=== PATIENT | female | born 1950 | race Caucasian/White ===

== ENCOUNTER 2020-09-21 09:48 | Outpatient (CLI) | payer MEDICARE, MEDICAID, SELFPAY ==
--- NOTE | 2020-09-21 10:42 | ECG_ITS ---
Measurements Intervals [place] Rate: 66 P: 2 NM: 157 QRS: 5 QRSD: 99 T: 15 QT: 394 QTc: 415 Interpretive Statements SINUS RHYTHM BORDERLINE R WAVE PROGRESSION, ANTERIOR LEADS BASELINE ARTIFACT- I, II, III, AVR, AVL, AVF BORDERLINE ECG Electronically Signed On 09-21-2020 11:37:41 [employer] by Luis Zuluaga D.O.
[2020-09-21 11:28] LABS: Basophils Absolute Auto 0.1 K/mm3 (0.0-0.1); Basophils Percent Auto 0.9 % (0.2-1.2); Eosinophils Absolute Auto 0.3 K/mm3 (0-0.3); Eosinophils Percent Auto 5.3 % (0-4.4); Hematocrit 39.8 % (37.0-47.0); Immature Granulocyte Absolute 0.02 K/mm3 (0.00-0.031); Immature Granulocyte Percent A 0.3 % (0-0.5); Lymphocytes Absolute Auto 2.17 K/mm3 (0.9-3.2); Lymphocytes Percent Auto 36.9 % (18.3-44.2); Mean Corpuscular HGB Conc 32.7 g/dl (32-36); Mean Corpuscular Hemoglobin 32.1 pg (26-34); Mean Corpuscular Volume 98.3 fl (80-100); Mean Platelet Volume 9.5 fl (7.4-10.4); Monocytes Absolute Auto 0.5 K/mm3 (0.1-0.6); Monocytes Percent Auto 7.7 % (2.6-8.5); Neutrophils Absolute Auto 2.9 K/mm3 (1.3-6.7); Neutrophils Percent Auto 48.9 % (45.5-73.1); Platelet Count Result 216 k/mm3 (150-375); Red Blood Count 4.05 M/mm3 (4.2-5.4); Red Cell Distribution Width 14.3 % (11.5-14.5); White Blood Count 5.9 K/mm3 (4.5-10.0)
[2020-09-21 11:31] LABS: Add Urine Microscopic? YES; Appearance Urine Cloudy (Clear); Bilirubin Urine Negative (Negative); Blood Urine Negative (Negative); Color Urine Yellow (Yellow); Glucose Urine UA Negative (Negative); Ketones Urine Negative (Negative); Leukocyte Esterase Ur Negative LEU/UL (Negative); Mucus Urine Rare /lpf; Nitrate Urine Negative (Negative); Protein Urine 1+ mg/dL (Negative); RBC Urine 0-2 /hpf (0-2); Specific Grav Ur 1.028 (1.001-1.035); Squamous Epithelial Cell Urine Rare /hpf (Few); Urobilinogen Urine Negative mg/dL (<2.0); WBC Urine 0-3 /hpf
[2020-09-21 11:39] LABS: Anion Gap 5 mmol/L (8-16); Blood Urea Nitrogen 23 mg/dL (7-17); Calcium 9.6 mg/dL (8.4-10.2); Carbon Dioxide 30 mmol/L (22-30); Chloride 104 mmol/L (98-107); Estimated Glomerular Filt Rate > 60; Glucose 133 mg/dL (65-105); Potassium 3.6 mmol/L (3.4-5.0); Sodium 139 mmol/L (137-145)
[2020-09-21 11:40] LABS: INR 0.9; Prothrombin Time 12.4 Seconds (11.1-14.7)
[2020-09-21 11:41] LABS: Partial Thromboplastin Time 29.1 SECONDS (22.3-36.8)
[2020-09-21 11:57] LABS: Urine Cotinine NEGATIVE
[2020-09-21 12:17] LABS: Hemoglobin A1C 5.9 % (<5.7)
== END 2020-09-21 09:49 | disposition home or self-care (01) ==
PROVIDERS: PCP Emergency Medicine; Visit Provider Orthopaedic Surgery
DX: Z01.818 Encounter for other preprocedural examination (principal); M17.12 Unilateral primary osteoarthritis, left knee
CPT/HCPCS: 80048; 80307; 81001; 82040; 83036; 85025; 85610; 85730; 86850; 86900; 86901; 87081; 93005

== ENCOUNTER 2020-09-28 00:20 | Day surgery (SDC) | payer MEDICARE, MEDICAID, SELFPAY ==
[2020-09-21 10:20] VITALS: BMI 34.2
[2020-09-21 10:40] VITALS: BP 142/55; PULSE 69; RESP 16; TEMP 37.3; O2SAT 99
--- NOTE | 2020-09-27 09:49 | WPDANESEPPF ---
Anes - Initial Pre Proc Eval Procedure: Operation Date: 09/28/20 07:30 Proposed Procedures p Left Total Knee Arthroplasty - Khai Lyman MD Date/Time: 09/27/20 09:49 Surgeon: Khai Lyman MD Pre Op Diagnosis: Left Knee DJD Patient Data Age: 70 Gender: F Height: 1.52 m Weight: 79.4 kg Last Vital Signs Temp 37.3 C 09/21/20 10:40 Pulse 69 09/21/20 10:40 Resp 16 09/21/20 10:40 BP 142/55 H 09/21/20 10:40 Pulse Ox 99 09/21/20 10:40 Allergies Allergy/AdvReac Type Severity Reaction Status Date / Time Sulfa (Sulfonamide Allergy Intermediate Hives Verified 09/28/20 06:37 Antibiotics) Home Medications Medication Instructions Recorded Confirmed Type aspirin 81 mg tablet,delayed 81 mg PO DAILY #90 tablet 06/21/20 09/28/20 Rx release lisinopril 5 mg tablet 5 mg PO DAILY #90 tablet 06/21/20 09/28/20 Rx metformin 1,000 mg tablet 1,000 mg PO BID #180 tablet 06/21/20 09/28/20 Rx calcium carbonate 600 mg (1,500 1 cap PO DAILY 07/29/20 09/28/20 History mg)-vitamin D3 500 unit capsule multivitamin 1 tablet PO DAILY 07/29/20 09/28/20 History chlorhexidine gluconate 4 % 1 applic TOPICAL ONCE #237 ml 09/05/20 09/28/20 Rx topical liquid atorvastatin 40 mg PO HS 09/21/20 09/28/20 History cyanocobalamin (vitamin B-12) 1,000 mcg PO DAILY 09/21/20 09/28/20 History meloxicam 15 mg PO PRN PRN 09/21/20 09/28/20 History montelukast 10 mg PO PRN PRN 09/21/20 09/28/20 History Patient hx anesthesia problems: none Family hx anesthesia problems: none PMFSH Past Medical History Medical History (Updated 09/27/20 @ 09:50 by Jose Moran, ) Cataracts, both eyes Chicken pox Claustrophobia Diabetes type II History of sinus problem Hyperlipidemia Hypertension Wears glasses Surgical History Surgical History H/O cataract removal with insertion of prosthetic lens (~2013) History of section (~1984) History of section (~1986) History of partial knee replacement (~2018) History of tonsillectomy (~195) Family History Family History Father , 77 Heart problem Mother , 93. of natural causes No problems noted. Other Arthritis Diabetes mellitus Hypertension Social History Social History Social History: Patient drinks caffeine once weekly Smoking status: Never smoker Additional smoking assessment comments: DENIES ANY FORM OF TOBACCO USE Alcohol intake: never Substance use: never Substance use type: does not use Living arrangements: with family Gender identity (if verbalized by the patient): Female Spiritual care concerns: No Anes - Eval Final PreProcedure Day of Procedure 09/27/20 09:49 Patient weight: obese Heart: regular rate and rhythm Lungs: clear to auscultation and normal air movement Airway: Mallampati scale class II Neurological: alert and oriented Last oral intake: >/= 8 hours ASA classification: III Emergent: no Anesthetic plan: proceed Anesthesia type and monitoring: general LMA and standard monitoring Informed Consent: The patient's anesthetic plan and its attendant risks and benefits were discussed with the patient/family/POA. Questions were solicited and answers provided to the satisfaction of the patient/family/POA.
[2020-09-28] VITALS (13 sets, daily range): BP systolic 107–163; BP diastolic 55–86; PULSE 70–84; RESP 8–18; TEMP 35.8–36.8; O2SAT 96–100
--- NOTE | ~2020-09-28 | XR_ITS ---
EXAMINATION: XR knee LT 2V EXAM DATE: 09/28/2020 10:47 INDICATION: Left knee arthroplasty. TECHNIQUE: Portable frontal, crosstable lateral projections left knee obtained immediately following arthroplasty. Procedure performed by Khai Lyman MD. FINDINGS: Patient is status post total knee arthroplasty. The orthopedic hardware is in expected po sition. There are regulo overlying the anterior aspect of the knee. There is small amount of subcu taneous gas, gas within the knee joint space. Overlying soft tissue swelling. Correlate with proced ure note. IMPRESSION: Status post total left knee arthroplasty. Reviewed, dictated and finalized at location A.
[2020-09-28] MEDS: ACETAMINOPHEN 500 MG TABLET 1000 MG PO (06:40)
[2020-09-28] MEDS: LACTATED RINGERS 1,000 ML 30 ML IV CONT ×2 (06:45→10:28)
--- NOTE | 2020-09-28 06:45 | WPDANESPNB ---
Anes - Peripheral Nerve Block Date/Time: 09/28/20 06:45 I have discussed with the patient/family/POA the placement of a peripheral nerve block for post-operative pain management, including associated risks, benefits, complications, and side effects. Alternative methods of post-operative analgesia were detailed. Questions were solicited and answers provided to the satisfaction of the patient/family/POA. Time-Out: A pre-procedural Time-Out was completed immediately before starting the procedure and confirmed: Patient Identification, Site, Procedure, Patient Position and the Availability of Requisite Equipment. Clinical Indications: Acute post-operative pain management requested by the operative surgeon. Nerve Block Insertion Note Anes-nerve block: adductor canal left Patient position: supine Skin prep: chlorhexidine Needle: 22 gauge, stimulating, insulated echogenic needle. Needle length: 80 mm Technique: ultrasound Injectate: bupivacaine 0.5% with epi 5 mcg/ml (30cc - no epi) Observations: tolerated well Complications: none Procedure start time:: 730 Procedure end time:: 733
[2020-09-28 06:56] LABS: Glucose Point of Care 122 (65-105)
[2020-09-28] MEDS: TRANEXAMIC ACID 1,000MG/ISO100 1,000 MG/100 ML BAG 200 MG IVPB (07:14)
--- NOTE | 2020-09-28 07:22 | WPDHPUPDATE1 ---
History and Physical Update Update Date/Time: 09/28/20 07:22 History and Physical has been reviewed, including an updated exam of the patient. There are NO changes in the patient's condition. Risks, benefits, and alternatives have been discussed and questions answered. Patient agrees to proceed with procedure.
[2020-09-28] MEDS: ceFAZolin 2 GM/D5W 50 ML 2 GM/50 ML BAG IVPB ×2 (07:40→17:01)
--- NOTE | 2020-09-28 11:00 | PM.PROC ---
Procedure Note - Detailed Date of procedure: 09/28/20 Pre-op diagnosis: Left Knee DJD Post-op diagnosis: same Procedure performed: L TKA Description of procedure: THE LEFT KNEE WAS PREPPED AND DRAPED IN THE STERILE FASHION. A MIDLINE SKIN INCISION WAS MADE. A MEDIAL PARAPATELLAR ARTHROTOMY WAS MADE. THE PATELLA WAS EVERTED. THERE WAS TRICOMPARTMENT DJD. THERE WAS MINIMAL PATELLA DJD. AN INTRAMEDULLARY DENICE WAS PLACED IN THE FEMUR. A DISTAL FEMORAL CUT WAS MADE IN 5 DEGREES OF VALGUS REMOVING APPROXIMATELY 9 MM OF BONE FROM THE DISTAL FEMUR. THE FEMUR WAS SIZED TO 57.5. A 57.5 FEMORAL CUTTING BLOCK WAS PLACED IN 3 DEGREES OF EXTERNAL ROTATION AND IN ALIGNMENT WITH JOSSIE'S LINE AND THE TRANSEPICONDYLAR AXIS. ANTERIOR POSTERIOR AND CHAMFER CUTS WERE MADE. THE CUTS WERE EXCELLENT. NEXT AN INTRAMEDULLARY CUTTING GUIDE WAS PLACED IN THE TIBIA. A TRANS TIBIAL CUT WAS MADE ALONG THE LONG AXIS OF THE TIBIA. APPROXIMATELY 10 MM OF BONE WAS REMOVED FROM THE HIGH SIDE OF THE TIBIA. THE TIBIA WAS THEN PLANED TO A SMOOTH SURFACE. POSTERIOR FEMORAL OSTEOPHYTES WERE REMOVED FROM THE FEMORAL CONDYLES. A 67 TIBIAL TRIAL WAS PLACED IN ALIGNMENT WITH THE 1/3 MEDIAL ASPECT OF THE TIBIAL TUBERCLE. THEN A 70 FEMORAL TRIAL COMPONENT WAS PLACED. BOTH HAD EXCELLENT FITS. EVENTUALLY A 12m POLYETHYLENE TRIAL COMPONENT WAS PLACED. THE KNEE WAS TAKEN THROUGH A RANGE OF MOTION. THE KNEE CAME OUT TO FULL EXTENSION. THERE WAS NO ABNORMAL TILT TO THE PATELLA. THERE WAS GOOD A/P AND VARUS/VALGUS STABILITY. THERE WAS NO EXCESSIVE ROLL BACK WITH FLEXION. THE TRIAL COMPONENTS WERE REMOVED. THEN A 7O FEMORAL COMPONENT AND 67 TIBIAL COMPONENT WITH A 12 POLYETHYLENE COMPONENT WERE CEMENTED INTO PLACE. ONCE THE CEMENT WAS HARD THE KNEE WAS TAKEN THROUGH A ROM AGAIN AND FOUND TO BE STABLE WITH NO PATELLA TILT NO EXCESSIVE ROLL BACK WITH FLEXION AND GOOD STABILITY WITH COMPLETE AND FULL EXTENSION. THE KNEE WAS IRRIGATED WITH STERILE BETADINE AND WATER FOR ABOUT 3 MINUTES. THE BLEEDERS WERE CAUTERIZED. THE ARTHROTOMY WAS REPAIRED WITH NUMBER 1 VICRYL. THE SUB CUTANEOUS LAYER WITH 2-0 VICRYL AND THE SKIN WITH APRIL. THE WOUND WAS WASHED AND A STERILE DRESSING WAS APPLIED. PATIENT WAS EXTUBATED. Anesthesia: GETA Surgeon: Khai Lyman MD Estimated blood loss (mL): 100 Complications: No immediate complications Condition: stable Disposition: PACU
--- NOTE | 2020-09-28 12:02 | ADMGEN ---
This patient, Savita Dalotn, was admitted to Medical Room 254-01. Patient/family oriented to hospital policies and general routines including ID bracelet, bed and alarms, visiting hours, pain management, procedures, bathroom and other care routines, personal items, smoking policy, room service/diet, and visiting hours. Information on how to activate the Rapid Response Team has been discussed. Patient/Family are encouraged to report perceived risks to care and to ask questions if they do not understand what they are told or what they should do.
--- NOTE | 2020-09-28 15:03 | PM.IMHP ---
H&P: HPI History of Present Illness Date/Time: 09/28/20 15:03 Chief Complaint: Left knee degenerative joint disease Narrative: Date of admission: 09/28/2020 Date of service: 09/28/2020 Savita Dalton is 70-year-old female with a history of jjy-mdvexmr-icmdetske diabetes mellitus, hyperlipidemia, hypertension and osteoarthritis s/p right total knee arthroplasty several years ago who has just undergone left total knee arthroplasty by Dr. Lyman this morning. She tolerated the procedure well and her pain is well controlled. She reports her pain is 2/10. She was able to transition from bed to chair. She has participated in PT/OT this afternoon and tolerated well. She had no issues with anesthesia. She has been able to eat and is tolerating a regular diet. She denies nausea or vomiting. She plans to recover and rehabilitate at home where she lives with her son. She is being seen in consultation by the hospitalist service. Supervising physician for this history and physical is Dr. Tim Andrews. Review of Systems Review of Systems: Narrative: All systems reviewed with pertinent positives and negatives as per HPI. Additionally, patient denies shortness of breath, chest pain, palpitations, cough, or wheezing. No abdominal pain, cramping, or bloating. Her last bowel movement was 2 days ago. She denies any urinary symptoms. She denies any weight changes. She has occasional seasonal allergies but no issues at this time. She denies numbness or tingling in her extremities. Her diabetes has been well controlled for some time now. She denies any recent cold or flu symptoms. [facility] Past Medical History Medical History (Updated 09/28/20 @ 15:15 by Regina Kebede PA-C) Cataracts, both eyes Chicken pox Claustrophobia Diabetes type II Hyperlipidemia Hypertension Seasonal allergies Wears glasses Surgical History Surgical History (Updated 09/28/20 @ 15:15 by Regina Kebede PA-C) H/O cataract removal with insertion of prosthetic lens (~2013) Left eye History of section (~1984) History of section (~1986) History of partial knee replacement (~2018) Right knee History of tonsillectomy (~1958) History of total left knee replacement 09/28/20 S/P trigger finger release Right thumb Family History Family History (Updated 09/28/20 @ 15:16 by Regina Kebede PA-C) Father , 77 Hypertension Diabetes mellitus Mother , 93. of natural causes Hypertension Other Arthritis Social History Social History (Updated 09/28/20 @ 15:18 by Regina Kebede PA-C) Social History: Ms. Dalton lives in a home with her son and his . She is retired. Her primary care provider is Dr. Codey Patel. She designates her son, Andrew, as her surrogate decision maker. She would like to be a full code. Smoking status: Never smoker Alcohol intake: never Substance use: never Substance use type: does not use Living arrangements: with family Gender identity (if verbalized by the patient): Female Spiritual care concerns: No Meds Home Medications and Allergies Home Medications Medication Instructions Recorded Confirmed Type aspirin 81 mg tablet,delayed 81 mg PO DAILY #90 tablet 06/21/20 09/28/20 Rx release lisinopril 5 mg tablet 5 mg PO DAILY #90 tablet 06/21/20 09/28/20 Rx metformin 1,000 mg tablet 1,000 mg PO BID #180 tablet 06/21/20 09/28/20 Rx calcium carbonate 600 mg (1,500 1 cap PO DAILY 07/29/20 09/28/20 History mg)-vitamin D3 500 unit capsule multivitamin 1 tablet PO DAILY 07/29/20 09/28/20 History chlorhexidine gluconate 4 % 1 applic TOPICAL ONCE #237 ml 09/05/20 09/28/20 Rx topical liquid atorvastatin 40 mg PO HS 09/21/20 09/28/20 History cyanocobalamin (vitamin B-12) 1,000 mcg PO DAILY 09/21/20 09/28/20 History meloxicam 15 mg PO PRN PRN 09/21/20 09/28/20 History montelukast 10 mg PO PRN PRN 09/21/20 09/28/20 History Allergies
--- NOTE | 2020-09-28 15:18 | PC.NURSE ---
On 09/28/20, the students, [Lizeth Campos and Kylah Rogers ], provided care and completed [employer] documentation on this patient. I have reviewed the student's documentation and agree with the findings.
[2020-09-28 16:38] LABS: Glucose Point of Care 129 (65-105)
[2020-09-28 16:49] LABS: Glucose Point of Care 117 (65-105)
[2020-09-28] MEDS: oxyCODONE/ACETAMINOPHEN (*CRX) 5-325 MG TABLET 1 TABLET PO ×2 (17:02→21:26)
[2020-09-28] MEDS: metFORMIN HCL 500 MG TABLET 1000 MG PO (17:02)
[2020-09-28] MEDS: CELECOXIB 200 MG CAPSULE PO (17:02)
[2020-09-28] MEDS: DOCUSATE SODIUM 100 MG CAPSULE PO (17:02)
[2020-09-28 20:32] LABS: Glucose Point of Care 148 (65-105)
[2020-09-28] MEDS: ATORVASTATIN 40 MG TABLET PO (21:23)
[2020-09-28] MEDS: FAMOTIDINE 20 MG TABLET PO (21:24)
[2020-09-29] MEDS: ceFAZolin 2 GM/D5W 50 ML 2 GM/50 ML BAG IVPB ×2 (00:06→08:40)
[2020-09-29 01:58] VITALS: BP 113/59; PULSE 81; RESP 16; TEMP 36.6; O2SAT 98
[2020-09-29] MEDS: oxyCODONE/ACETAMINOPHEN (*CRX) 5-325 MG TABLET 1 TABLET PO ×2 (02:59→08:40)
[2020-09-29 05:37] LABS: Basophils Absolute Auto 0.1 K/mm3 (0.0-0.1); Basophils Percent Auto 0.8 % (0.2-1.2); Eosinophils Absolute Auto 0.2 K/mm3 (0-0.3); Eosinophils Percent Auto 3.5 % (0-4.4); Hematocrit 30.4 % (37.0-47.0); Hemoglobin 10.1 g/dL (12.0-15.0); Immature Granulocyte Absolute 0.02 K/mm3 (0.00-0.031); Immature Granulocyte Percent A 0.3 % (0-0.5); Lymphocytes Absolute Auto 1.49 K/mm3 (0.9-3.2); Lymphocytes Percent Auto 23.8 % (18.3-44.2); Mean Corpuscular HGB Conc 33.2 g/dl (32-36); Mean Corpuscular Hemoglobin 32.8 pg (26-34); Mean Corpuscular Volume 98.7 fl (80-100); Mean Platelet Volume 9.5 fl (7.4-10.4); Monocytes Absolute Auto 0.7 K/mm3 (0.1-0.6); Monocytes Percent Auto 10.9 % (2.6-8.5); Neutrophils Absolute Auto 3.8 K/mm3 (1.3-6.7); Neutrophils Percent Auto 60.7 % (45.5-73.1); Platelet Count Result 166 k/mm3 (150-375); Red Blood Count 3.08 M/mm3 (4.2-5.4); Red Cell Distribution Width 14.3 % (11.5-14.5); White Blood Count 6.3 K/mm3 (4.5-10.0)
[2020-09-29 05:41] VITALS: BP 112/53; PULSE 82; RESP 16; TEMP 36.4; O2SAT 100
[2020-09-29 05:49] LABS: Anion Gap 4 mmol/L (8-16); Blood Urea Nitrogen 13 mg/dL (7-17); Calcium 7.8 mg/dL (8.4-10.2); Carbon Dioxide 28 mmol/L (22-30); Chloride 103 mmol/L (98-107); Estimated CRCL calculation 70 ml/min; Estimated Glomerular Filt Rate > 60; Glucose 137 mg/dL (65-105); Potassium 3.9 mmol/L (3.4-5.0); Sodium 135 mmol/L (137-145)
[2020-09-29 07:06] LABS: Glucose Point of Care 136 (65-105)
[2020-09-29] MEDS: ASPIRIN 325 MG ENTERIC TABLET 650 MG PO (08:41)
[2020-09-29] MEDS: DOCUSATE SODIUM 100 MG CAPSULE PO (08:41)
[2020-09-29] MEDS: MULTIVITAMINS THERAPEUTIC TAB (*BKC) 1 TABLET PO (08:41)
[2020-09-29] MEDS: CELECOXIB 200 MG CAPSULE PO (08:41)
[2020-09-29] MEDS: FAMOTIDINE 20 MG TABLET PO (08:41)
[2020-09-29] MEDS: metFORMIN HCL 500 MG TABLET 1000 MG PO (08:41)
[2020-09-29] MEDS: lisinopriL 5 MG TABLET PO (08:41)
--- NOTE | 2020-09-29 09:27 | P.PNAN_ITS ---
Anes - Prog Note Post-Op Date/Time: 09/29/20 09:27 Cardiovascular status: normal Respiratory status: normal Airway patency: baseline Mental status: baseline Post-Op hydration status: normal Vital Signs: Last Vital Signs Temp 36.4 C 09/29/20 05:41 Pulse 82 09/29/20 05:41 Resp 16 09/29/20 05:41 BP 112/53 L 09/29/20 05:41 Pulse Ox 100 09/29/20 05:41 Pain Score (VAS): 2 I/O: Intake & Output 09/28/20 09/29/20 09/29/20 23:59 07:59 15:59 Intake Total 690 250 360 Output Total 300 600 Balance 390 -350 360 Laboratory Tests 09/29/20 05:21 09/29/20 05:20 09/28/20 09/28/20 09/28/20 11:09 16:43 20:28 WBC RBC Hgb Hct MCV MCH MCHC RDW Plt Count MPV Immature Gran % (Auto) Neut % (Auto) Lymph % (Auto) [place] % (Auto) Eos % (Auto) Baso % (Auto) Lymph # (Auto) [place] # (Auto) Eos # (Auto) Baso # (Auto) Abs Immat Gran (auto) Absolute Neuts (auto) Absolute Nucleated RBC Nucleated RBC % Sodium Potassium Chloride Carbon Dioxide Anion Gap BUN Creatinine Estim Creat Clear Calc Estimated GFR Glucose POC Capillary Glucose 129 H 117 H 148 H Calcium 09/29/20 09/29/20 09/29/20 05:20 05:21 07:04 WBC 6.3 RBC 3.08 L Hgb 10.1 L Hct 30.4 L MCV 98.7 MCH 32.8 MCHC 33.2 RDW 14.3 Plt Count 166 MPV 9.5 Immature Gran % (Auto) 0.3 Neut % (Auto) 60.7 Lymph % (Auto) 23.8 [place] % (Auto) 10.9 H Eos % (Auto) 3.5 Baso % (Auto) 0.8 Lymph # (Auto) 1.49 [place] # (Auto) 0.7 H Eos # (Auto) 0.2 Baso # (Auto) 0.1 Abs Immat Gran (auto) 0.02 Absolute Neuts (auto) 3.8 Absolute Nucleated RBC 0.0 Nucleated RBC % 0.0 Sodium 135 L Potassium 3.9 Chloride 103 Carbon Dioxide 28 Anion Gap 4 L BUN 13 D Creatinine 0.60 L Estim Creat Clear Calc 70 Estimated GFR > 60 Glucose 137 H POC Capillary Glucose 136 H Calcium 7.8 L Post-procedural complaints: none Patient Feedback: Patient satisfied with anesthetic care.
--- NOTE | 2020-09-29 09:52 | PM.PNORT ---
Progress Note: A&P Assessment and Plan (1) Status post total left knee replacement: Code(s): Z96.652 - Presence of left artificial knee joint Status: Acute Assessment and Plan: POD#1: Left TKA Continue PT/OT. WBAT. Walker. HIGH FALL RISK. Continue pain control. Ice Knee. Protect skin. Monitor dressing. Change prior to discharge. SCDs. Incentive Spirometry. Continue DVT prophylaxis. Dispo: Home with Home Health likely today. Subjective Subjective Date/Time Seen: 09/29/ 09:00 POD #1: Left TKA No new complaints. Tolerating PT/OT well. Pain well controlled. Wants to go home. Review of Systems Review of Systems: All systems reviewed & are unremarkable except as noted in HPI and below Constitutional: Constitutional: Denies fever(s) and Denies headache(s) ENT: Denies headache(s) Cardiovascular: Cardiovascular: Denies chest pain, Denies diaphoresis, Denies palpitations and Denies dyspnea Respiratory: Respiratory: Denies dyspnea Gastrointestinal: Gastrointestinal: Denies abdominal pain, Denies constipation, Denies nausea and Denies vomiting Genitourinary: Genitourinary: Reports nocturia and Denies dysuria Musculoskeletal: Musculoskeletal: Reports arthralgias (Left Knee ), Reports joint swelling (Left Knee ) and Reports limited range of motion (ROM limited due to recent surgical intervention LEFT Knee ) Neurologic: Denies headache(s) Endocrine: Endocrine: Denies palpitations Exam Const: General: comfortable and no acute distress Resp: Effort & Inspection: normal respiratory effort Cardio: Rate: regular rate Rhythm: regular rhythm GI: GI Palp: Yes Soft to palpation, No Tenderness to palpation present (GI) and No Guarding due to palpation present (GI) Skin: Wounds: wounds noted Other: Incision c/d/i. No surrounding redness/warmth. No hematoma. Mild ecchymosis. No wound dehiscence Neuro: Cognition (Neuro): normal cognition Other: NV intact aside from block. Moves toes. Sensation intact to light touch. +ankle dorsiflexion/plantarflexion. Extrem: Right upper extremity: normal to inspection, full ROM and normal capillary refill Left upper extremity: normal to inspection, full ROM and normal capillary refill Right lower extremity: normal to inspection and full ROM (ROM limited due to recent surgical intervention ) Left lower extremity: normal to inspection, normal capillary refill and knee Details: tenderness (diffuse ), swelling (moderate consistent to recent surgery ), abnormal ROM (limited due to recent surgery ) and ecchymosis (as expected with recent surgery. NO hematoma. ) Other: Incision left TKA dressing c/d/i. No hematoma. No signs of infection. No wound dehiscence. Psych: Mental Status: mental status grossly normal Objective Data Vital Signs Vital Signs: Vital Signs - 24 hr 09/28/20 10:28 09/28/20 10:30 09/28/20 10:45 Temperature 36.7 C Pulse Rate 78 84 72 Respiratory Rate 8 L 18 14 Blood Pressure 129/68 142/70 H 139/86 Pulse Oximetry 100 100 100 09/28/20 11:00 09/28/20 11:14 09/28/20 11:25 Temperature 36.1 C L Pulse Rate 73 73 70 Respiratory Rate 18 18 16 Blood Pressure 132/71 134/79 128/62 Pulse Oximetry 100 98 96 09/28/20 11:40 09/28/20 12:10 09/28/20 13:10 Temperature 36.2 C L 35.8 C L 36.1 C L Pulse Rate 72 82 77 Respiratory Rate 16 14 16 Blood Pressure 126/59 L 128/63 128/84 Pulse Oximetry 96 99 98 09/28/20 16:25 09/28/20 17:55 09/28/20 21:39 Temperature 36.8 C 36.7 C Pulse Rate 76 74 Respiratory Rate 18 18 Blood Pressure 116/55 L 107/57 L Pulse Oximetry 97 100 98 09/29/20 01:58 09/29/20 05:41 Temperature 36.6 C 36.4 C Pulse Rate 81 82 Respiratory Rate 16 16 Blood Pressure 113/59 L 112/53 L Pulse Oximetry 98 100 Intake/Output Intake/Output: Intake & Output 09/26/20 09/27/20 09/28/20 09/29/20 23:59 23:59 23:59 23:59 Intake Total 960 610 Output Total 300 600 Balance 660 10 Meds/Results Medications:
[2020-09-29 10:38] VITALS: BP 109/52; PULSE 89; RESP 12; TEMP 36.6; O2SAT 100
--- NOTE | 2020-09-29 10:56 | PM.IMPN ---
Progress Note: A&P Assessment and Plan (1) Status post total left knee replacement: Code(s): Z96.652 - Presence of left artificial knee joint Status: Acute Assessment and Plan: She underwent left total knee arthroplasty by Dr. Lyman yesterday. She tolerated the procedure and pain is well controlled at this time. Likely discharge home today. She lives with her son and has excellent support. Weight-bearing, DVT prophylaxis, and discharge disposition per Dr. Lyman. She will continue PT/OT. Continue analgesics as needed for pain. Follow-up with Dr. Lyman outpatient. (2) Diabetes: Qualifiers: Diabetes mellitus type: other specified (including JENNIFER) Diabetes mellitus prison insulin use: without prison use Diabetes mellitus complication status: without complication Qualified Code(s): E13.9 - Other specified diabetes mellitus without complications Code(s): E11.9 - Type 2 diabetes mellitus without complications Status: Acute Assessment and Plan: A1c is 5.9. Blood sugars have been reviewed and are well controlled. Continue Accu-Cheks ACHS, sliding-scale insulin, and hypoglycemic protocol throughout stay. Continue metformin (3) Hypertension: Code(s): I10 - Essential (primary) hypertension Status: Inactive Assessment and Plan: Blood pressure reviewed and has been well controlled. Last BP is 112/53. Continue lisinopril. Monitor BP trends Subjective Date/time seen: 09/29/20 10:56 Interval history: Date of service:09/29/2020 Savita Dalton is 70-year-old female with a history of itl-auxhkng-odncezwsk diabetes mellitus, hyperlipidemia, hypertension and osteoarthritis s/p right total knee arthroplasty several years ago who is not s/p left total knee arthroplasty by Dr. Lyman on 09/28/2020. She is doing well today. Her pain is well controlled at this time. She reports a little discomfort with palpation otherwise no issues. She has been participating in PT/OT and tolerating well. She denies nausea or vomiting. Appetite has been good. No bowel movement since surgery, but she feels that she needs to have one today. No urinary symptoms. No shortness breath, cough, chest pain, or palpitations. No dizziness, lightheadedness, or weakness. She is comfortable with return home today. Review of Systems Review of Systems: All systems reviewed & are unremarkable except as noted in HPI and below Exam Narrative: Exam Narrative: Ms. Dalton is a well-nourished, well-appearing 70-year-old female who is lying supine in bed. She appears comfortable and is in NARD. Neuro: awake, alert and oriented x4, speech clear, no focal neuro deficits noted HEENMT: normocephalic, atraumatic, EOMI, sclerae anicteric, moist oral mucosa, tongue midline, nares patent Neck: supple, no lymphadenopathy Respiratory: clear to auscultation bilaterally, nonlabored breathing Cardio: regular rate, regular rhythm with S1-S2 Abdomen: protuberant, normoactive bowel sounds, soft, nontender to palpation, no rigidity or guarding Extremities: Left lower extremity is wrapped and covered with ice pack. Non-tender to palpation. RLE without edema. No erythema, cyanosis, clubbing, or tenderness to palpation. DP pulses 2+ bilaterally. Able to wiggle toes bilaterally. Skin: no rashes or lesions, warm and dry Psych: appropriate mood and affect, judgment and insight intact Objective Data Vital Signs Vital Signs: Vital Signs - 24 hr 09/28/20 11:00 09/28/20 11:14 09/28/20 11:25 Temperature 96.9 F L Pulse Rate 73 73 70 Respiratory Rate 18 18 16 Blood Pressure 132/71 134/79 128/62 Pulse Oximetry 100 98 96 09/28/20 11:40 09/28/20 12:10 09/28/20 13:10 Temperature 97.1 F L 96.4 F L 96.9 F L Pulse Rate 72 82 77 Respiratory Rate 16 14 16 Blood Pressure 126/59 L 128/63 128/84 Pulse Oximetry 96 99 98 09/28/20 16:25 09/28/20 17:55 09/28/20 21:39 Temperature 98.3 F 98.0 F
--- NOTE | 2020-09-29 13:40 | PM.DS ---
DS: Admitting Diagnosis Admitting Diagnosis Admitting Diagnosis: Left knee DJD DS: Discharge Diagnosis Discharge Diagnosis (1) Status post total left knee replacement: Code(s): Z96.652 - Presence of left artificial knee joint Status: Acute Assessment and Plan: POD#1: Left TKA Continue PT/OT. WBAT. Walker. HIGH FALL RISK. Continue pain control. Ice Knee. Protect skin. Monitor dressing. Change prior to discharge. SCDs. Incentive Spirometry. Continue DVT prophylaxis. Dispo: Home with Home Health likely today. DS: Summary Hospital Course Reason for hospitalization: left total knee replacement Hospital Course: 70-year-old female admitted status post left total knee replacement for postoperative medical management, pain control and physical therapy / occupational therapy. Patient progressed well with PT and OT and was deemed safe to be discharged home. She was cleared from medicine standpoint as well. She will be discharged home with home health. We will follow up with the patient approximately 3 weeks. Dressing was changed prior to discharge. Patient's pain is well controlled. All medications of an called to the patient's pharmacy, patient verbalized understanding agrees with plan of care. Status at Discharge Functional status at discharge: uses cane/walker Overall status at discharge: patient is progressing back to baseline Time Spent with Patient Time attestation: Total time spent providing and/or coordinating discharge services: Exam Const: General: comfortable and no acute distress Resp: Effort & Inspection: normal respiratory effort Cardio: Rate: regular rate Rhythm: regular rhythm Skin: Wounds: wounds noted Other: Incision c/d/i. No surrounding redness/warmth. No hematoma. Mild ecchymosis. No wound dehiscence Neuro: Cognition (Neuro): normal cognition Other: NV intact aside from block. Moves toes. Sensation intact to light touch. +ankle dorsiflexion/plantarflexion. Extrem: Right upper extremity: normal to inspection, full ROM and normal capillary refill Left upper extremity: normal to inspection, full ROM and normal capillary refill Right lower extremity: normal to inspection and full ROM (ROM limited due to recent surgical intervention ) Left lower extremity: normal to inspection, normal capillary refill and knee Details: tenderness (diffuse ), swelling (moderate consistent to recent surgery ), abnormal ROM (limited due to recent surgery ) and ecchymosis (as expected with recent surgery. NO hematoma. ) Other: Incision left TKA dressing c/d/i. No hematoma. No signs of infection. No wound dehiscence. Psych: Mental Status: mental status grossly normal DS: Data Data Completed and Pending Labs on day of discharge: Labs from last 24 hours 09/29/20 09/29/20 09/29/20 07:04 05:21 05:20 WBC 6.3 RBC 3.08 L Hgb 10.1 L Hct 30.4 L MCV 98.7 MCH 32.8 MCHC 33.2 RDW 14.3 Plt Count 166 MPV 9.5 Immature Gran % (Auto) 0.3 Neut % (Auto) 60.7 Lymph % (Auto) 23.8 [place] % (Auto) 10.9 H Eos % (Auto) 3.5 Baso % (Auto) 0.8 Lymph # (Auto) 1.49 [place] # (Auto) 0.7 H Eos # (Auto) 0.2 Baso # (Auto) 0.1 Abs Immat Gran (auto) 0.02 Absolute Neuts (auto) 3.8 Absolute Nucleated RBC 0.0 Nucleated RBC % 0.0 Sodium 135 L Potassium 3.9 Chloride 103 Carbon Dioxide 28 Anion Gap 4 L BUN 13 D Creatinine 0.60 L Estim Creat Clear Calc 70 Estimated GFR > 60 Glucose 137 H POC Capillary Glucose 136 H Calcium 7.8 L 09/28/20 09/28/20 09/28/20 20:28 16:43 11:09 WBC RBC Hgb Hct MCV MCH MCHC RDW Plt Count MPV Immature Gran % (Auto) Neut % (Auto) Lymph % (Auto) [place] % (Auto) Eos % (Auto) Baso % (Auto) Lymph # (Auto) [place] # (Auto) Eos # (Auto) Baso # (Auto) Abs Immat Gran (auto) Absolute Neuts (auto) Absolute Nucleated R
--- NOTE | 2020-09-29 13:50 | PC.NURSE ---
Extra dressing sent home with patient.
== END 2020-09-29 13:50 | disposition home health service (06) ==
LOC: ANHSURGERY 06:10 → ANH2MED 11:20
PROVIDERS: PCP Emergency Medicine; Visit Provider Orthopaedic Surgery
PROC: (CPT 27447; principal; 2020-09-28 07:30)
DX: M17.12 Unilateral primary osteoarthritis, left knee (principal); G89.18 Other acute postprocedural pain; Z79.82 Long term (current) use of aspirin; Z79.84 Long term (current) use of oral hypoglycemic drugs; E11.9 Type 2 diabetes mellitus without complications; I10 Essential (primary) hypertension; E66.9 Obesity, unspecified; Z68.33 Body mass index [BMI] 33.0-33.9, adult
CPT/HCPCS: 64447; 27447; 36415; 73560; 80048; 80307; 81001; 82040; 82948; 83036; 85025; 85610; 85730; 86850; 86900; 86901; 87081; 93005; 97110; 97116; 97161; 97165; 97530; 97535; A9270; C1713; C1776; J0171; J0690; J1100; J1885; J2250; J2270; J2405; J2704; J2795; J3010; J7120

== ENCOUNTER → 2020-11-15 12:24 | Outpatient (CLI) | payer MEDICARE, MEDICAID, SELFPAY ==
--- NOTE | ~2020-11-15 | DEXA_ITS ---
Bone Density Report Name: Savita Dalton Age: 70 Sex: Female Ethnicity: White Date of : 1950 Indication: postmenopausal; screening for osteoporosis; Referring Provider: JASON MARTEL Study: Bone densitometry was performed. Exam Date: November 15, 2020 Accession number: [id number] Bone Density: Region BMD T-score Z-score Classification AP Spine (L1-L4) 1.065 0.2 2.2 Normal Femoral Neck (Left) 0.763 -0.8 0.9 Normal Total Hip (Left) 0.954 0.1 1.5 Normal Femoral Neck (Right) 0.875 0.2 1.9 Normal Total Hip (Right) 1.002 0.5 1.9 Normal Total Hip Mean 0.978 0.3 1.7 Normal World Health Organization criteria for BMD impression classify patients as: Normal (T-score at or above -1.0), Osteopenia (T-score between -1.0 and -2.5), or Osteoporosis (T-score at or below -2.5). 10-year Fracture Risk: FRAX not reported because: All T-scores for Spine Total, Hip Total, Femoral Neck at or above -1.0 Clinical Information Provided by Patient: Has used the following medications: Vitamin D, Calcium, MTV Patient maximum height was 60.0 Menopause Age: 58 No regular weight bearing exercise Drinks caffeinated beverages Onset of menses at age 15 Number of children 2 Impression: The patient has normal bone mass. Discussion: BONE DENSITY IS ABOVE THE MINIMUM DESIRABLE LEVEL AT ALL SKELETAL SITES TESTED. This patient?s bone mineral density is above the minimum desirable level (T-score -1.0 or better) at all sites measured. The patient should follow a healthful lifestyle (good nutrition with adequate calcium and vitamin D, and appropriate weight-bearing exercise). Follow-Up: Consider repeating this study in 5 years or sooner if there is some new clinical indication. Reported by: FILOMENA on 11/15/2020 2:50:00 PM. Reviewed, dictated and finalized at location AHallie COX
--- NOTE | ~2020-11-15 | MM_ITS ---
EXAMINATION: MM screening vinod BI w dayana HISTORY: Screening TECHNIQUE: Craniocaudal and mediolateral oblique 3-D tomosynthesis images were obtained and synthetic 2-D images were generated. CAD analysis was submitted and interpreted. COMPARISON: No prior mammogram is available for comparison at this institution. BREAST PARENCHYMAL COMPOSITION: Breast composed of scattered areas of fibroglandular density. FINDINGS: There are bilateral clusters of calcifications which are indeterminate. There is a focal ma ss in the upper outer quadrant of the left breast. There are benign-appearing bilateral axillary lymph nodes. IMPRESSION: 1. Bilateral clusters of indeterminate breast calcifications. Focal mass upper outer quadrant of the left breast. 2. Comparison to previous outside mammograms recommended to assess stability. BI-RADS Category 0: Incomplete: Needs additional imaging evaluation. Reviewed, dictated and finalized at location A.
== END ==
PROVIDERS: PCP Emergency Medicine; Visit Provider Emergency Medicine
DX: Z12.31 Encounter for screening mammogram for malignant neoplasm of breast (principal); R92.8 Other abnormal and inconclusive findings on diagnostic imaging of breast; Z78.0 Asymptomatic menopausal state
CPT/HCPCS: 77063; 77067; 77080

== ENCOUNTER 2020-12-01 08:15 | Outpatient (RCR) | payer MEDICARE, MEDICAID, SELFPAY ==
--- NOTE | 2020-10-27 16:12 | PTOPEVAL ---
Thank you for referring Savita Dalton to [facility].? The patient is scheduled to be seen for therapy? 2 x/week for 5 weeks. Please review, sign, date and return this plan of care RADHA. I agree with and certify that the following plan of care is medically necessary. Referring Physician Date Attending Provider: Khai Lyman MD Physical therapy evaluation Diagnosis OA left knee, s/p TKR Onset 09/28/20 Additional Evaluation Detail She has been using a wheeled wheeled or a cane at home 15 steps with railings at home . She needed her knee replaced in Jul, but had to wait until restrictions lifted. She has been limited with walking since Jul. Subjective Information She reports limited with Query Text:As Reported By Patient/ walking, squating, standing, Family sitting, ADL's, IADL's and negotiating steps. She is performing HEP 3-7x/day depending on the exercises. She had a CPM she used 2x/day for 1 hour. She had the unit for 2 wks. Prior to surgery she would walk the mall 3 miles a day, ride bike 5 miles 3x/wk at the [facility]. Pain Assessment Self Report Pain Assessment Left Knee(s) Reported Pain Level 4 Pain Description Aching Pain Frequency Acute,Continuous Lowest Pain Intensity 2 Greatest Pain Intensity 5 Pain Aggravating Factors ADL's,Bending,Exercise/ Activity,Lifting,Sitting,Stair Climbing,Walking,Weight Bearing/Standing Lower Extremity Range of Motion Knee Range of Motion Left Knee Flexion Range of Motion - Active 102 Knee Extension Range of Motion - Active -12 Query Text: Right Knee Flexion Range of Motion - Active 120 Knee Extension Range of Motion - Active 0 Query Text: Lower Extremity Muscle Strength Testing Hip Strength Left Hip Flexion Strength 3 Fair Hip Extension Strength 4- Good - Hip Abduction Strength 3 Fair Right Hip Flexion Strength 4 Good Hip Extension Strength 4 Good Hip Abduction Strength 3 Fair Knee Strength Left Knee Flexion Strength 4- Good - Knee Extension Strength 3+ Fair + Right Knee Flexion Strength
--- NOTE | 2020-12-01 10:44 | PTOPEVAL ---
Thank you for referring Savita Dalton to [facility].?Savita has attended 11 therapy visits to address LE limitations related to knee surgery. She has partially achieved her therapy goals at this time with improve knee motion, leg strength and functional mobility. She demonstrates indep with her home program. Will DC skilled therapy services at this time. Please review, sign, date and return this discharge summary RADHA. I agree with and certify that the following plan of care is medically necessary. Referring Physician Date Attending Provider: Khai Lyman MD Physical Therapy Discharge Note Diagnosis OA left knee, s/p TKR Onset 09/28/20 Additional Evaluation Detail She needed her knee replaced in Jul, but had to wait until restrictions lifted. She has been limited with walking since Jul. Prior to surgery she would walk the mall 3 miles a day, ride bike 5 miles 3x/wk at the [facility]. Subjective Information She reports continued Query Text:As Reported By Patient/ limitation with walking longer Family distances. She will use her cane for distance mobility. she continues to have pain with steps. She exercises daily but does not get everything completed. She remains limited with daily task. She has learn modification for ADL's. Pain Assessment Self Report Pain Assessment Left Knee(s) Reported Pain Level 2 Pain Description Aching,Soreness Pain Frequency Continuous Lowest Pain Intensity 2 Greatest Pain Intensity 3 Pain Score Pain Score 2: Self Report Lower Extremity Range of Motion Left Knee Flexion Range of Motion - Active 117 Knee Extension Range of Motion - Active -3 Lower Extremity Muscle Strength Testing Hip Strength Left Hip Flexion Strength 4+ Good + Hip Extension Strength 3+ Fair + Hip Abduction Strength 3+ Fair + Right Hip Flexion Strength 4+ Good + Hip Extension Strength 4- Good - Hip Abduction Strength 4 Good Knee Strength Left Knee Flexion Strength 4- Good - Knee Extension Strength 4+ Good + Right Knee Flexion Strength 4 Good Knee Extension Strength 5 Normal Special Tests-Lower Extremity Hip Special Tests Trendelenburg Sign Positive Left,Positive Right Hip Special Test Comments single leg stance right: 2 sec
== END 2020-12-01 11:55 | disposition home or self-care (01) ==
LOC: ANHPT 08:15
PROVIDERS: PCP Emergency Medicine; Visit Provider Orthopaedic Surgery
DX: Z47.1 Aftercare following joint replacement surgery (principal); Z96.652 Presence of left artificial knee joint
CPT/HCPCS: 97014; 97110; 97140; 97162; 97530; G0283

== ENCOUNTER → 2020-12-08 09:22 | Outpatient (CLI) | payer MEDICARE, MEDICAID, SELFPAY ==
--- NOTE | ~2020-12-08 | MM_ITS ---
EXAMINATION: MM diagnostic mammo BI HISTORY: Bilateral calcifications reported on 11/15/2020 screening mammogram examination TECHNIQUE: Additional ML images of both breasts were performed in addition to bilateral magnification views.. CAD analysis was submitted and interpreted. COMPARISON: 11/15/2020 bilateral digital screening mammogram 10/03/2018 and 10/02/2017 outside mammogram examinations FINDINGS: Stable bilateral intramammary lymph nodes are noted. Multiple scattered bilateral benign calcifications are noted, including secretory calcifications, satnam cified microhematomas and benign fibroadenoma type calcifications. No malignant calcifications are ev ident. IMPRESSION: 1. Benign calcifications and stable benign intramammary lymph nodes. No mammographic evidence of andreina gnancy 2. Routine mammographic screening is recommended BI-RADS Category 2: Benign finding(s). Reviewed, dictated and finalized at location A. IMPRESSION: 1. Benign calcifications and stable benign intramammary lymph nodes. No mammogr aphic evidence of malignancy 2. Routine mammographic screening is recommended BI-RADS Category 2: Benign finding(s).
== END ==
PROVIDERS: PCP Emergency Medicine; Visit Provider Emergency Medicine
DX: R92.8 Other abnormal and inconclusive findings on diagnostic imaging of breast (principal)
CPT/HCPCS: 77066

== ENCOUNTER → 2021-11-17 14:00 | Outpatient (CLI) | payer MEDICARE, MEDICAID, SELFPAY ==
--- NOTE | ~2021-11-17 | MM_ITS ---
EXAMINATION: MM screening vinod BI w dayana HISTORY: Screening mammogram TECHNIQUE: Craniocaudal and mediolateral oblique 3-D tomosynthesis images were obtained and synthetic 2-D images were generated. CAD analysis was submitted and interpreted. COMPARISON: 12/08/2020 bilateral diagnostic mammogram 11/2020, 10/03/2018, 10/02/2017 bilateral screening mammogram examinations BREAST PARENCHYMAL COMPOSITION: There are scattered areas of fibroglandular density. FINDINGS: Numerous scattered bilateral benign microcalcifications. Stable posterior upper inner quadr ant benign-appearing intramammary lymph nodes are again noted, not significantly changed since 018. There is no evidence of suspicious mass, calcification, or architectural distortion to suggest m alignancy in either breast. There has been no suspicious interval change. IMPRESSION: 1. No mammographic evidence of malignancy. 2. Recommend routine screening mammography in one year. BI-RADS Category 2: Benign finding(s). Reviewed, dictated and finalized at location A.
== END ==
PROVIDERS: PCP Emergency Medicine; Visit Provider Emergency Medicine
DX: Z12.31 Encounter for screening mammogram for malignant neoplasm of breast (principal)
CPT/HCPCS: 77063; 77067

== ENCOUNTER → 2022-12-19 10:52 | Outpatient (CLI) | payer MEDICARE, SELFPAY ==
--- NOTE | ~2022-12-19 | MM_ITS ---
EXAMINATION: MM screening vinod BI w dayana HISTORY: Screening TECHNIQUE: Craniocaudal and mediolateral oblique 3-D tomosynthesis images were obtained and synthetic 2-D images were generated. CAD analysis was submitted and interpreted. COMPARISON: Comparison to multiple prior studies sequentially, with oldest reviewed study dated 10/02. BREAST PARENCHYMAL COMPOSITION: There are scattered areas of fibroglandular density. FINDINGS: There is no evidence of suspicious mass, calcification, or architectural distortion to sugg est malignancy in either breast. There has been no suspicious interval change. IMPRESSION: 1. No mammographic evidence of malignancy. 2. Recommend routine screening mammography in one year. BI-RADS Category 1: Negative Reviewed, dictated and finalized at location A.
--- NOTE | ~2022-12-19 | DEXA_ITS ---
Bone Density Report Name: ERIKA IQBAL Age: 72 Sex: Female Ethnicity: White Date of : 1950 Indication: postmenopausal; screening for osteoporosis; Referring Provider: JASON MARTEL Study: Bone densitometry was performed. Exam Date: December 19, 2022 Accession number: [id number] Bone Density: Region BMD T-score Z-score Classification AP Spine (L1-L4) 1.072 0.2 2.4 Normal Femoral Neck (Left) 0.760 -0.8 1.0 Normal Total Hip (Left) 0.965 0.2 1.7 Normal Femoral Neck (Right) 0.770 -0.7 1.1 Normal Total Hip (Right) 0.969 0.2 1.8 Normal Total Hip Mean 0.967 0.2 1.8 Normal World Health Organization criteria for BMD impression classify patients as: Normal (T-score at or above -1.0), Osteopenia (T-score between -1.0 and -2.5), or Osteoporosis (T-score at or below -2.5). 10-year Fracture Risk: FRAX not reported because: All T-scores for Spine Total, Hip Total, Femoral Neck at or above -1.0 Previous Exams: Region Exam Age BMD T-score BMD Change BMD Change Date g/cm2 vs Baseline vs Previous AP Spine(L1-L4) 12/19/2022 72 1.072 0.2 0.007 0.007 11/15/2020 70 1.065 0.2 Total Hip(Left) 12/19/2022 72 0.965 0.2 0.011 0.011 11/15/2020 70 0.954 0.1 Total Hip(Right) 12/19/2022 72 0.969 0.2 -0.033 -0.033 11/15/2020 70 1.002 0.5 *Denotes significance at 95% confidence level, LSC for AP Spine = 0.022 g/cm2, LSC for Total Hip = 0.027 g/cm2 Clinical Information Provided by Patient: Has used the following medications: Vitamin D, Calcium, MTV Patient maximum height was 60.0 Menopause Age: 58 Onset of menses at age 15 Number of children 2 Impression: The patient has normal bone mass. No significant bone loss was observed. Discussion: BONE DENSITY IS ABOVE THE MINIMUM DESIRABLE LEVEL AT ALL SKELETAL SITES TESTED. This patient?s bone mineral density is above the minimum desirable level (T-score -1.0 or better) at all sites measured. The patient should follow a healthful lifestyle (good nutrition with adequate calcium and vitamin D, and appropriate weight-bearing exercise). Follow-Up: Consider repeating this study in 5 years or sooner if there is some new clinical indication. Reported by: FILOMENA on 12/19/2022 11:41:00 AM. Reviewed, dictated and finalized at location AHallie COX
== END ==
PROVIDERS: PCP Emergency Medicine; Visit Provider Emergency Medicine
DX: Z12.31 Encounter for screening mammogram for malignant neoplasm of breast (principal); Z78.0 Asymptomatic menopausal state
CPT/HCPCS: 77063; 77067; 77080

== ENCOUNTER 2024-02-27 07:21 | Outpatient (CLI) | payer MEDICARE, SELFPAY ==
--- NOTE | ~2024-02-27 | MM_ITS ---
EXAMINATION: MM screening vinod BI w dayana HISTORY: Screening TECHNIQUE: Craniocaudal and mediolateral oblique 3-D tomosynthesis images were obtained and synthetic 2-D images were generated. CAD analysis was submitted and interpreted. COMPARISON: Comparison to multiple prior studies sequentially, with oldest reviewed study dated 10/02. BREAST PARENCHYMAL COMPOSITION: Not dense: There are scattered areas of fibroglandular density. FINDINGS: Stable benign-appearing breast calcifications. There is no evidence of suspicious mass, satnam cification, or architectural distortion to suggest malignancy in either breast. There has been no cheli picious interval change. IMPRESSION: 1. No mammographic evidence of malignancy. 2. Recommend routine screening mammography in one year. BI-RADS Category 1: Negative Reviewed, dictated and finalized at location B.
== END 2024-02-27 07:22 ==
LOC: MICIMG 07:22
PROVIDERS: PCP Emergency Medicine; Visit Provider Emergency Medicine
DX: Z12.31 Encounter for screening mammogram for malignant neoplasm of breast (principal)
CPT/HCPCS: 77063; 77067

== ENCOUNTER 2025-03-01 07:34 | Outpatient (CLI) | payer MEDICARE, MEDICAID, SELFPAY ==
--- NOTE | ~2025-03-01 | MM_ITS ---
EXAMINATION: MM screening [facility] BI w dayana HISTORY: Screening mammogram TECHNIQUE: Craniocaudal and mediolateral oblique 3-D tomosynthesis images were obtained and synthetic 2-D images were generated. CAD analysis was submitted and interpreted. COMPARISON: 02/27/2024, 12/19/2022, 11/17/2021 BREAST PARENCHYMAL COMPOSITION:Not Dense. There are scattered areas of fibroglandular density. FINDINGS: No suspicious mass, calcification, or architectural distortion are identified in either liu ast to suggest malignancy. There has been no suspicious interval change. IMPRESSION: No mammographic evidence of malignancy. Recommend routine screening mammography in one year. BI-RADS Category 1: Negative Reviewed, dictated and finalized at location .
--- OUTSIDE RECORDS SUMMARY | 2025-03-01 07:40 | XMS_ITS | Patient Health Record ---
Author Organization [facility] Address [address] [place] [address] [id number] [id number] Care Team Providers Care Monotypist Name Role Phone Kate Ramos Primary Care Provider Allergies Allergen (clinical drug ingredient) Drug/Non Drug Allergy documented on EMR Reaction Allergy Type Onset Date Status sulfa hives Drug Allergy Active Next diabetic eye ex am due 10/2016 no DM retinopat (uncoded) Unknown Allergy Active Reason For Referral No Information Medications Medication SIG (Take, Route, Frequency, Duration) Notes Start Date End Date Status atorvastatin 40 mg tablet 1 tab(s) orall y once a day (at bedtime); Duration: 90 days 12/29/2014 Active metFORMIN 1000 mg tablet 1 tab(s) orally 2 times a day; Duration: 90 days Active Aspir 81 81 mg enteric coated tablet 1 tab(s) orally once a day; Duration: 90 Active Patanase 665 mcg/inh spray 2 spray(s) in tranasally 2 times a day; Duration: 90 days 12/29/2014 Active lisinopril 20mg tablet 1 tab orally once a day; Duration: 90 days Active Immunizations Vaccine Route Administration Date Status Comme nts FLU VACCINE, 6MO & >, PRIVATE(QUAD) IM Intramuscular 04/21/2014 Administered pt tolerated we ll no noted reaction pt signed consent form FLU VACCINE, 6MO & >, PRIVATE(QUAD) IM Intramuscular 06/27/2016 Administered Pt tollerated w ell. Consent obtained. Social History Tobacco Use: Social History Observation Description Date Details (start date - stop date) Never Smoker NA - NA Social History General Social Info Question Answer Notes SO/GI Sexual Orientation Straight Gender Identity Female Exercise: Are you physically Active? No Pneumococcal Vaccine Have you had the Pneumococcal Vac cine Yes Date of last pneumococcal vaccine /2009 Self Management Does Patient require assistance with any activities of daily living? No Mammogram Have you had a Mammogram? Yes Date of Last Mammogram 09/2015 Last Tetanus Date no Colonoscopy: Colonoscopy Yes 2011 Influenza Vaccination: Have you had a flu shot? NO Tobacco Use: DO YOU CURRENTLY USE TOBACCO PRODUCTS? no nsmoker HAVE YOU USED TOBACCO PRODUCTS IN THE PAST? No Additional Details Category Social Info Options Details General Travel ouside [place]: no Alcohol: no Home smoke detector use: yes Caffeine: yes frequency:occ Marital Status: single Problems Problem Type SNOMED Code ICD Code Onset Dates Problem Status W/U Status Risk Notes Problem Onychomycosis (939115524) Onychomycosis (110.1) Active confirmed Problem Body mass index 30+ - obesity (378384058) BMI 37.0-37.9,ADULT (V85.37) Active confirmed Problem Chronic rhinitis (75897299) Chronic rhinitis (J31.0) Active confirmed Problem Hyperlipidemia (59147602) Hyperlipidemia, unspecified (E78.5) Active confirmed Problem Essential hypertension (94510184) Essential hypertension (I10) Active confirmed Problem Type II diabetes mellitus without complication (967939474) Type II or unspecified type diabetes mellitus without mention of complication, not stated as uncontrolled (E11.9) Active confirmed Plan Of Treatment No Information Insurance Providers Payer Name Payer Address Payer Phone Subscriber Number Group Number Insured Name Patient Relationship to Insured Coverage Start Date Coverage End Date Medicare PPS FQHC Part A [address] [address] [place] LIGHT [phone] [id number] ERIKA IQBAL Self - patient is the insured [employer] [place] [employer] [address] [place] [address] [id number] ERIKA IQBAL Self - patient is the insured Medical (General) History Medical History History ICD Code type 2 diabetes hypertension Surgical History Surgery Date(Month/Year) c section x 2 tonsillectomy 1956 oral surgery 09/2013 cataract surgery 11/04/2014 Hospitalization History Reason Date(Month/Year) see above
== END 2025-03-01 07:35 | disposition home or self-care (01) ==
LOC: CHSIMG 07:36
PROVIDERS: PCP Emergency Medicine; Visit Provider Emergency Medicine
DX: Z12.31 Encounter for screening mammogram for malignant neoplasm of breast (principal)
CPT/HCPCS: 77063; 77067

== ENCOUNTER 2025-06-24 13:37 | Outpatient (CLI) | payer MEDICARE, MEDICAID, SELFPAY ==
--- NOTE | ~2025-06-24 | DEXA_ITS ---
Bone Density Report Name: ERIKA IQBAL Age: 75 Sex: Female Ethnicity: White Date of : 1950 Indication: postmenopausal; screening for osteoporosis; Referring Provider: Codey Patel Study: Bone densitometry was performed. Exam Date: June 24, 2025 Accession number: [id number] Bone Density: Region BMD T-score Z-score Classification AP Spine(L1-L4) 1.074 0.2 2.5 Normal Femoral Neck (Left) 0.679 -1.5 0.4 Osteopenia Total Hip (Left) 0.970 0.2 1.9 Normal Femoral Neck (Right) 0.740 -1.0 1.0 Normal Total Hip (Right) 1.009 0.5 2.2 Normal Femoral Neck Mean 0.710 -1.3 0.7 Osteopenia Total Hip Mean 0.990 0.4 2.1 Normal World Health Organization criteria for BMD impression classify patients as: Normal (T-score at or above -1.0), Osteopenia (T-score between -1.0 and -2.5), or Osteoporosis (T-score at or below -2.5). 10-year Fracture Risk(1): Major Osteoporotic Fracture 10% Hip Fracture 1.8% Reported Risk Factors: [place] (), Neck BMD=0.679, BMI=30.7 (1) FRAX(R) Version 3.08. Fracture probability calculated for an untreated patient. Fracture probability may be lower if the patient has received treatment. Clinical Information Provided by Patient: Has used the following medications: multivitamins Patient maximum height was 60 Menopause Age: 58 No regular weight bearing exercise Drinks caffeinated beverages Onset of menses at age 15 Number of children 2 Impression: The patient has low bone mass, based on the Left Femoral Neck T-score. Discussion: BONE DENSITY IS LOW AT ONE OR MORE SKELETAL SITES. This patient's lowest T-score is low at one or more skeletal sites. It meets the World Health Organization's (WHO) criteria for ?low bone mass? (T-score between -1.0 and -2.5). The patient's 10-year risk of fracture as calculated by FRAX is less than the threshold where pharmacological therapy is recommended by the National Osteoporosis Foundation (NOF). However, all treatment decisions require clinical judgment and consideration of individual patient factors, including patient preferences, comorbidities, previous drug use, risk factors not captured in the FRAX model (e.g., frailty, falls, vitamin D deficiency, increased bone turnover, interval significant decline in bone density) and possible under or overestimation of fracture risk by FRAX. The patient should follow a healthful lifestyle (good nutrition with adequate calcium and vitamin D, and appropriate weight-bearing exercise). Follow-Up: Consider repeating this study in 2 to 3 years to reassess this patient's status, or sooner if there is some new clinical indication. Reported by: ENMA on 06/28/2025 8:08:00 AM. Reviewed, dictated and finalized at location A.
== END 2025-06-24 13:38 | disposition home or self-care (01) ==
PROVIDERS: PCP Emergency Medicine; Visit Provider Emergency Medicine
DX: Z78.0 Asymptomatic menopausal state (principal); M85.89 Other specified disorders of bone density and structure, multiple sites
CPT/HCPCS: 77080